=== PATIENT | female | born 1960 | race Caucasian/White ===

== ENCOUNTER 2019-10-22 13:04 | Emergency (ER) | payer OTHER ==
[~2019-10-22] VITALS: Ht 162.6 cm; Wt 56.7 kg
[2019-10-22 13:20] VITALS: BP 115/73
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
--- NOTE | 2019-10-22 13:57 | NUR ---
ED Nurse Note: Pt went on CT via wheelchair accompanied by tech.
--- NOTE | 2019-10-22 14:16 | NUR ---
ED Nurse Note: Pt returned from ct on stable condition.
--- NOTE | 2019-10-22 14:54 | Diagnostic Imaging Report ---
Indication: Headache Technique: Contiguous 5 mm thick transaxial imaging of the head obtained in a Siemens Sensation [address] scanner. Soft tissue and bone windows generated. Automatic Exposure Control was utilized. Total Dose length Product (DLP): [address] Dose Index Volume (CTDIvol): 62.7 mGy Comparison: none Findings: There is mild prominence of the ventricles, basal cisterns, and cerebral sulci consistent with atrophy. Mild, nonspecific, white matter hypoattenuation is noted throughout the brain consistent with chronic small vessel disease. There is no midline shift, edema, acute hemorrhage, mass effect, or abnormal extra-axial fluid collections. Bones are unremarkable. Impression: No acute intracranial bleed, mass effect or edema. Mild atrophy of the brain. Nonspecific white matter hypoattenuation probably due to chronic small vessel disease. The CT scanner at [facility] is accredited by the [employer] and the scans are performed using dose optimization techniques as appropriate to a performed exam including Automatic Exposure control.
--- NOTE | 2019-10-22 15:16 | Diagnostic Imaging Report ---
Indications: Right hip pain Findings: Two views of the right hip were obtained. No acute fracture is demonstrated. Bones are osteopenic. Alignment of the hip is within normal limits. Soft tissues are unremarkable. Moderate degenerative changes of the lower lumbar spine demonstrated with both endplate and facet hypertrophy. Impression: Negative for acute injury.
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
[2019-10-22] MEDS ORDERED: ROBAXIN-500MG ORAL (15:23)
[2019-10-22] MEDS ORDERED: IBUPROFEN600 MG ORAL (15:23)
[2019-10-22] MEDS ORDERED: ZOFRAN4 M1 ORAL (15:38)
[2019-10-22 15:55] VITALS: BP 118/74
--- NOTE | 2019-10-22 15:55 | NUR ---
ER DISCHARGE NOTE: Pt is cleared to be discharged per ERMD. Pt is AOx4, VSS, on RA. pt was given dc and prescription instructions, pt was able to verbalize understanding, pt id band removed. pt is able to ambulate with steady gait. pt took all belongings.
== END 2019-10-22 15:55 | disposition home or self-care (01) ==
LOC: EMR 14:10
DX: S00.93XA Contusion of unspecified part of head, initial encounter (principal); S70.01XA Contusion of right hip, initial encounter; S16.1XXA Strain of muscle, fascia and tendon at neck level, initial encounter; V49.9XXA Car occupant (driver) (passenger) injured in unspecified traffic accident, initial encounter; Y92.9 Unspecified place or not applicable; Z88.0 Allergy status to penicillin
CPT/HCPCS: 70450; 99284